=== PATIENT | male | born 1985 | race Caucasian/White ===

== ENCOUNTER 2024-11-15 17:12 | Emergency (ER) | payer OTHER, SELFPAY ==
[2024-11-15 17:13] VITALS: BP 109/82; PULSE 111; RESP 19; TEMP 36.6; O2SAT 97
--- NOTE | 2024-11-15 17:49 | EDS_ITS ---
HPI History of Present Illness Chief Complaint: Lower Extremity Injury Informant: patient and spouse/S.O. Narrative Narrative: Healthy 38-year-old male states he was playing pickle ball and he pushed off to quickly go up for a short shot, and he states suddenly felt a pop and severe pain behind his right heel, like somebody hit him with a bowling ball there. Now he has pain going all the way up his calf, and he cannot walk on it. States he did not twist his ankle. Denies any numbness or weakness. PFSH PFSH Medical History no medical history no medical history Home Medications ?Medication ?Instructions ?Recorded ?Last Taken ?Type oxycodone-acetaminophen 5 mg-325 1 tab PO Q6H PRN PRN Pain 3 days 11/15/24 Unknown Rx mg tablet #10 TABLETS Allergy/AdvReac Type Severity Reaction Status Date / Time No Known Allergies Allergy Verified 11/15/24 17:15 Surgical History no surgical history Social History Smoking Status: Never smoker ROS ROS ED Constitutional Constitutional ED: Denies chills or fever(s) Musculoskeletal Musculoskeletal: Reports extremity pain; Denies neck pain Integumentary Denies Abrasions, rash or wounds Neurologic Neurologic: Denies paresthesias or weakness EXAM Physical Exam Const Vital Signs: 11/15/24 17:13 11/15/24 18:32 Temperature 97.9 F 97.9 F Temperature Source Temporal Pulse Rate 111 H 88 Respiratory Rate 19 H 15 Blood Pressure 109/82 H 119/79 Blood Pressure Mean 91 92 Pulse Ox 97 99 Oxygen Delivery Method Room Air Positive well nourished and well developed General Appearance ED: well developed and NAD Neck full ROM and supple Back/Spine normal ROM and normal to inspection Extremity Extremity Narrative: Abnormal Nelson test right lower extremity with patient prone. Palpating the calf gives him very much pain there, but it is soft and nondistended. There is a deformity at the right Achilles and tenderness there. Skin is intact. Foot bones are nontender, ankle bones nontender. Neuro oriented x3, no focal motor deficits and no sensory deficits noted Sensorium / Orientation: alert Psych mental status grossly normal and thought process normal Skin no wounds Rashes: no rashes MDM MDM MDM Narrative Medical decision making narrative: Clinically consistent with an Achilles rupture. Discussed with orthopedics Dr. Li, gave the patient some pain medication, and placed in a plantarflexion splint and have him follow-up with crutches and nonweightbearing. Management Discussion w/another healthcare provider: Senior Embedded Software Engineer (Ortho Dr. Li) Procedures Lower Extremity Splints Lower Extremity Splint: Orthoglass (Posterior short leg, and plantarflexion; neurovascularly intact distally tolerated well no complications) Splint Fabrication: Fabricated Location: Right Discharge Plan Triage Chief Complaint: Lower Extremity Injury ED Provider: Claudio Morris Dx/Rx/DC Orders Clinical Impression: Achilles rupture, right Instructions: Using Crutches: [id number], Achilles Tendon Rupture, Splint Care Prescriptions: New oxycodone-acetaminophen 5-325 mg tablet 1 tab PO Q6H PRN PRN (Reason: Pain) 3 Days Qty: 10 0RF Primary Care Provider: Bandar Juarez Referrals: Bandar Li MD [Med Staff - Active Staff] - As soon as possible Print Language: [place] Disposition Disposition: Home, Self Care Discharge Date/Time: 11/15/24 18:32
[2024-11-15] MEDS: oxyCODONE 5 MG Tablet PO (18:02)
[2024-11-15] MEDS: Naproxen 500 MG Tablet PO (18:02)
[2024-11-15 18:32] VITALS: BP 119/79; PULSE 88; RESP 15; TEMP 36.6; O2SAT 99
== END 2024-11-15 18:32 | disposition home or self-care (01) ==
LOC: ED 17:57
PROVIDERS: Emergency Provider Emergency Medicine; PCP Family Medicine; Visit Provider Emergency Medicine
DX: S86.011A Strain of right Achilles tendon, initial encounter (principal); X58.XXXA Exposure to other specified factors, initial encounter; Y93.89 Activity, other specified
CPT/HCPCS: 29515; 99284

== ENCOUNTER → 2025-01-28 | Outpatient (CLI) | payer OTHER, SELFPAY ==
--- NOTE | 2025-01-28 09:34 | VDLE_ITS ---
Reason For Study Reason For Study: Right leg pain RIGHT LEFT GSV is normal. CFV is compressible, spontaneous, phasic, competent, CFV is compressible, spontaneous, phasic, competent and demonstrates normal augmentation. and demonstrates normal augmentation. FV is compressible, spontaneous, phasic, competent and demonstrates normal augmentation. POP V is compressible, spontaneous, phasic, competent and demonstrates normal augmentation. T/P Trunk is compressible. PTV is compressible. Acute deep vein thrombosis is noted in the Per V, Gastroc V and Soleus V. It is dilated and NONCOMPRESSIBLE. Procedure This is a venous duplex using B-mode, color flow and spectral Doppler. Exam performed in department. A preliminary report was called and/or faxed to Dr. Jane's office voicemail and PCP: Allison DAI. VL/Venous Duplex US, Unilateral Interpretation Summary Acute deep vein thrombosis is noted in the right peroneal vein. Acute deep vein thrombosis is noted in the right gastrocnemius vein. Acute deep vein thrombosis is noted in the right soleus vei n. The remainder of the right lower extremity deep venous system is patent and compressible. Valvular competence ap pears intact within the proximal deep venous system on the right . The right great saphenous vein appears patent and compressible segmentally. The left common femoral vein is patent and compressible . Ordering Physician: Alan Jane M.D. Referring Physician: Bandar Juarez Performed By: Makayla Garcia RVT
== END | disposition home or self-care (01) ==
LOC: CVS 09:30
PROVIDERS: PCP Family Medicine; Referring Provider Orthopaedic Surgery; Visit Provider Orthopaedic Surgery
DX: M79.661 Pain in right lower leg (principal)
CPT/HCPCS: 93971